=== PATIENT | female | born 1960 | race Caucasian/White ===

== ENCOUNTER 2022-06-11 14:00 | Emergency (ER) | payer BC ==
[2022-06-11] MEDS ORDERED: Sodium Chloride 0.9% 10 ML Syringe FLUSH PRN (14:15)
[2022-06-11] MEDS ORDERED: Aspirin 81 MG Tab.Chew PO ONE ×2 (14:15→14:16)
[2022-06-11 14:59] LABS: ESTIMATED GFR 97 mL/min (>60)
== END 2022-06-11 15:51 | disposition home or self-care (01) ==
LOC: FB.ED 14:00
DX: M79.602 Pain in left arm (principal); I25.10 Atherosclerotic heart disease of native coronary artery without angina pectoris
CPT/HCPCS: 36415; 71045; 80053; 83880; 84484; 85025; 85610; 85730; 93005; 99285; A9270; 93010; 99282